=== PATIENT | female | born 1935 | race Caucasian/White ===

== ENCOUNTER 2019-05-02 18:32 | Outpatient (CLI) | payer MEDICARE | END 2019-05-02 18:33 | disposition EMS.NT | LOC: EMS 18:32 | PROVIDERS: ATTEND Surgery | DX: R10.9 Unspecified abdominal pain (principal) ==

== ENCOUNTER 2019-05-02 19:55 | Emergency (ER) | payer MEDICARE, OTHER ==
--- NOTE | 2019-05-02 20:33 | ED Physician Documentation ---
History of Present Illness - Stated complaint Stated Complaint: LOWER ABD PAIN - Chief complaint Chief Complaint: Abd Pain - History obtained from History obtained from: Patient - Additonal information Additional information: Patient comes emergency department with her for chief complaint of abdominal pain that started today. states that the patient's pain started in the epigastric area but has moved to her lower abdomen over the course of the day. Patient states the pain is across her low abdomen now. She denies any fevers or chills. No nausea or vomiting. No dysuria. No diarrhea. Patient's states that she had a couple of hard nuggets of stool that came out earlier.No other complaints at this time. No chest discomfort, cough, or shortness of breath. Patient states that she has never had surgery on her abdomen and has all of her abdominal organs. Review of Systems Ten Systems: 10 systems reviewed and negative Constitutional: reports: Reviewed and negative Eyes: reports: Reviewed and negative Ears: reports: Reviewed and negative Nose: reports: Reviewed and negative Throat: reports: Reviewed and negative Cardiac: reports: Reviewed and negative Respiratory: reports: Reviewed and negative GI: reports: Abdominal Pain : reports: Reviewed and negative Skin: reports: Reviewed and negative Musculoskeletal: reports: Reviewed and negative Neurologic: reports: Reviewed and negative Psychiatric: reports: Reviewed and negative Endocrine: reports: Reviewed and negative Immunocompromised: reports: Reviewed and negative PD PAST MEDICAL HISTORY - Allergies Allergies/Adverse Reactions: Allergies Allergy/AdvReac Type Severity Reaction Status Date / Time No Known Drug Allergies Allergy Verified 05/02/19 20:01 PD ED PE NORMAL - Vitals Vital signs reviewed: Yes - General General: Alert and oriented X 3, No acute distress - HEENT HEENT: PERRL - Neck Neck: Supple, no meningeal sign - Cardiac Cardiac: RRR, No murmur - Respiratory Respiratory: Clear bilaterally - Abdomen Abdomen: Soft, Non distended, Other (Patient has tenderness over her lower abdomen diffusely without rebound or guarding. Tenderness is not worse on one side than the other.) - Derm Derm: Warm and dry - Extremities Extremities: No deformity - Neuro Neuro: Alert and oriented X 3 - Psych Psych: Normal mood, Normal affect Results - Vitals Vitals: Vital Signs - 24 hr 05/02/19 05/02/19 20:02 22:19 Temperature 36.8 C 36.1 C L Heart Rate 63 62 Respiratory 16 16 Rate Blood Pressure 162/108 H 205/95 H O2 Saturation 100 100 Oxygen O2 Source Room air - Labs Labs: Laboratory Tests 05/02/19 05/02/19 05/02/19 20:30 20:30 21:45 WBC 9.2 RBC 3.84 L Hgb 12.8 Hct 37.9 MCV 98.7 MCH 33.3 H MCHC 33.8 RDW 13.6 Plt Count 365 MPV 9.6 Neut # (Auto) 6.5 Lymph # (Auto) 1.4 L [place] # (Auto) 1.0 Eos # (Auto) 0.2 Baso # (Auto) 0.1 Absolute Nucleated RBC 0.00 Nucleated RBC % 0.0 Sodium 145 Potassium 4.0 Chloride 105 Carbon Dioxide 29 Anion Gap 11.0 BUN 29 H Creatinine 1.0 Estimated GFR (MDRD) 53 L Glucose 105 H Calcium 9.6 Total Bilirubin 0.6 AST 35 ALT 29 Alkaline Phosphatase 41 L Total Protein 7.0 Albumin 4.1 Globulin 2.9 Albumin/Globulin Ratio 1.4 Lipase 49 Urine Color Cancelled Urine Clarity Cancelled Urine pH Cancelled Ur Specific [place] Cancelled Urine Protein Cancelled Urine Glucose (UA) Cancelled Urine Ketones Cancelled Urine Occult Blood Cancelled Urine Nitrite Cancelled Urine Bilirubin Cancelled Urine Urobilinogen Cancelled Ur Leukocyte Esterase Cancelled Ur Microscopic Review Cancelled Urine Culture Comments Cancelled PD MEDICAL DECISION MAKING - ED course Complexity details: reviewed old records, reviewed results, re-evaluated patient, considered differential, d/w patient, d/w family ED course: Patient was worked up with labs. Patient appeared fairly comfortable in the emergency department and so initially, was not given any symptomatic treatment.Labs were unremarkable. I had plan to get a urinalysis and a CT scan of the abdomen and pelvis on the patient; however, when patient was sent in to do her urine Sample, she had a large bowel movement. She did not give a urine sample, but reported feeling much, much better after defecating. Patient stated her discomfort was completely gone. The then did admit that he had given her a large amount of Mylanta earlier in the day to try to get her to pass stool, as he thought that she most likely had constipation. At this point, given the patient's symptoms had completely passed and she was well-appearing with labs that were not concerning, I feel she was stable for discharge home with no further work-up. We have discussed home management of the symptoms, as well as the usual indications for return. Departure - Departure Disposition: 01 Home, Self Care Clinical Impression: Constipation, Abdominal pain Condition: Good Instructions: ED Constipation Comments: Your labs all look good. It seems that your symptoms have improved after your bowel movement. If things get worse again then please return to the emergency department if you are concerned. Otherwise, you may follow-up with your primary care physician for any further concerns. Discharge Date/Time: 05/02/19 22:21
[2019-05-02 20:37] LABS: BASOPHILS # (AUTO) 0.1 10^3/uL (0.0-0.1); EOSINOPHILS # (AUTO) 0.2 10^3/uL (0.0-0.7); EOSINOPHILS % (AUTO) 2.5 %; HGB - HEMOGLOBIN 12.8 g/dL (12.0-16.0); LYMPHOCYTES # (AUTO) 1.4 10^3/uL (1.5-3.5); MEAN CORPUSCULAR HEMOGLOBIN 33.3 pg (27.0-31.0); MEAN CORPUSCULAR HGB CONC 33.8 g/dL (32.0-36.0); MEAN CORPUSCULAR VOLUME 98.7 fL (81.0-99.0); MEAN PLATELET VOLUME 9.6 fL (7.9-10.8); MONOCYTES % (AUTO) 11.2 %; NEUTROPHILS # (AUTO) 6.5 10^3/uL (1.5-6.6); PLT - PLATELET COUNT 365 10^3/uL (130-450); RED BLOOD COUNT 3.84 10^6/uL (4.20-5.40); RED CELL DISTRIBUTION WIDTH 13.6 % (12.0-15.0); WHITE BLOOD COUNT 9.2 x10^3/uL (4.8-10.8)
[2019-05-02 20:50] LABS: ALBUMIN 4.1 g/dL (3.2-5.5); ALBUMIN/GLOBULIN RATIO 1.4 (1.0-2.2); BILIRUBIN,TOTAL 0.6 mg/dL (0.2-1.0); CALCIUM 9.6 mg/dL (8.5-10.3)
[2019-05-02] MEDS ORDERED: IOVERSOL 320 100 ML VIAL IVP ONE (21:47)
[2019-05-02 22:20] VITALS: BP 205/95
== END 2019-05-02 22:21 | disposition home or self-care (01) ==
LOC: ED 19:55
DX: K59.00 Constipation, unspecified (principal)
CPT/HCPCS: 36415; 80053; 81001; 81003; 83690; 85025; 87086; 99284

== ENCOUNTER 2020-01-16 16:35 | Outpatient (CLI) | payer MEDICARE | END 2020-01-16 16:36 | disposition EMS.NT | LOC: EMS 16:35 | PROVIDERS: ATTEND Surgery | DX: R10.9 Unspecified abdominal pain (principal) ==

== ENCOUNTER 2020-08-06 09:21 | Emergency (ER) | payer MEDICARE ==
--- NOTE | 2020-08-06 09:34 | ED Physician Documentation ---
PD HPI SKIN - Stated complaint Stated Complaint: LIP PX - Chief complaint Chief Complaint: Wound - History obtained from History obtained from: Patient, Family () - History of Present Illness Timing - onset: How many days ago (2) Timing - duration: Days (2) Timing - details: Abrupt onset (onset blister rash lower lip 2 days ago that has spread along lip margin. Painful.), Still present Location: Face (just lower lip margin) Quality / character: Painful, Vesicular Improved by: Other ( had acyclovir at home and started it yesterday. Has 5 day supply, from prior outbreak.) Associated symptoms: No: Fever, Myalgias Similar symptoms before: Diagnosis (prior episode of single blister Rx with acyclovir. This is spreading more than prior. Prior episodes twice after sun exposure. was not out in sun this time. No other new meds. Had COVID vaccine few months ago.) Recently seen: Not recently seen Review of Systems Constitutional: denies: Fever, Chills Nose: denies: Rhinorrhea / runny nose, Congestion Throat: denies: Sore throat Cardiac: denies: Chest pain / pressure Respiratory: denies: Dyspnea, Cough GI: denies: Nausea, Vomiting, Diarrhea PD PAST MEDICAL HISTORY - Past Medical History Cardiovascular: Hypertension Neuro: Dementia - Present Medications Home Medications: Ambulatory Orders Medication Instructions Recorded Confirmed Acyclovir 400 mg PO TID 5 Days #15 tablet 08/06/20 Alendronate [Fosamax] 70 mg PO PRN PRN 08/06/20 08/06/20 Atorvastatin [Lipitor] 40 mg PO DAILY 08/06/20 08/06/20 Lidocaine Viscous 2% [Xylocaine 1 ml TOP Q4H PRN #30 ml 08/06/20 Viscous 2%] QUEtiapine [SEROquel] 25 mg PO DAILY 08/06/20 08/06/20 - Allergies Allergies/Adverse Reactions: Allergies Allergy/AdvReac Type Severity Reaction Status Date / Time No Known Drug Allergies Allergy Verified 08/06/20 09:30 PD ED PE NORMAL - Vitals Vital signs reviewed: Yes - General General: Alert and oriented X 3, No acute distress, Well developed/nourished - HEENT HEENT: Moist mucous membranes, Pharynx benign, Other (throat, tongue and gums normal. Lower lip with blistering rash along margin. No purulence. ) - Neck Neck: Supple, no meningeal sign, No adenopathy - Cardiac Cardiac: RRR, No murmur - Respiratory Respiratory: Clear bilaterally - Derm Derm: Normal color, Warm and dry, No rash (other than lower lip.) Results - Vitals Vitals: Vital Signs - 24 hr 08/06/20 08/06/20 09:26 10:23 Temperature 35.9 C L 36.7 C Heart Rate 56 L 61 Respiratory 16 18 Rate Blood Pressure 151/85 H 159/83 H O2 Saturation 98 98 Oxygen O2 Source Room air PD MEDICAL DECISION MAKING - ED course Complexity details: considered differential (looks like oral herpetic), d/w patient Departure - Departure Disposition: 01 Home, Self Care 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 You can add lidocaine gel topically as needed for discomfort. You can use it fairly regularly actually. Also keep the area moisturized with just plain Vaseline lip ointment. Avoid Chapstick and other medicated type lip balm's as they may just staying. (No harm done but just staying). Add Tylenol or Aleve if needed for pain. If this has not resolved well over the next several days, you can continue the acyclovir out beyond 5 days. Discharge Date/Time: 08/06/20 10:30
[2020-08-06] MEDS ORDERED: LIDOCAINE VISCOUS 2% 15 ML UDC MM STA (10:04)
[2020-08-06] MEDS ORDERED: ACETAMINOPHEN 325 MG TABLET PO STA (10:04)
[2020-08-06 10:24] VITALS: BP 159/83
== END 2020-08-06 10:30 | disposition home or self-care (01) ==
LOC: ED 09:21
DX: B00.1 Herpesviral vesicular dermatitis (principal)
CPT/HCPCS: 99282; 99284; A9270

== ENCOUNTER 2020-11-09 07:43 | Outpatient (CLI) | payer MEDICARE ==
[2020-11-09 15:07] LABS: BASOPHILS # (AUTO) 0.1 10^3/uL (0.0-0.1); BASOPHILS % (AUTO) 1.7 %; EOSINOPHILS # (AUTO) 0.2 10^3/uL (0.0-0.7); EOSINOPHILS % (AUTO) 3.9 %; HGB - HEMOGLOBIN 13.3 g/dL (12.0-16.0); LYMPHOCYTES % (AUTO) 18.4 %; MEAN CORPUSCULAR HEMOGLOBIN 31.6 pg (27.0-31.0); MEAN CORPUSCULAR HGB CONC 30.9 g/dL (32.0-36.0); MEAN CORPUSCULAR VOLUME 102.1 fL (81.0-99.0); MEAN PLATELET VOLUME 10.7 fL (7.9-10.8); MONOCYTES # (AUTO) 0.7 10^3/uL (0.0-1.0); MONOCYTES % (AUTO) 12.4 %; NEUTROPHILS # (AUTO) 3.4 10^3/uL (1.5-6.6); NEUTROPHILS % (AUTO) 63.2 %; PLT - PLATELET COUNT 327 10^3/uL (130-450); RED BLOOD COUNT 4.21 10^6/uL (4.20-5.40); RED CELL DISTRIBUTION WIDTH 13.4 % (12.0-15.0); WHITE BLOOD COUNT 5.3 x10^3/uL (4.8-10.8)
[2020-11-09 15:29] LABS: ALBUMIN 3.8 g/dL (3.2-5.5); ALBUMIN/GLOBULIN RATIO 1.3 (1.0-2.2); ALKALINE PHOSPHATASE 52 IU/L (42-121); ALT ALANINE AMINOTRANSFERASE 33 IU/L (10-60); AST ASPARTATE AMINOTRANSFERASE 33 IU/L (10-42); BILIRUBIN,TOTAL 0.9 mg/dL (0.2-1.0); BUN - BLOOD UREA NITROGEN 17 mg/dL (6-20); CALCIUM 9.2 mg/dL (8.5-10.3); CARBON DIOXIDE - CO2 28 mmol/L (21-32); CHLORIDE 105 mmol/L (101-111); CHOL/HDL RATIO 2.8 (<4.4); CHOLESTEROL 209 mg/dL; CREATININE 0.9 mg/dL (0.4-1.0); GFR - MDRD 60 (>89); GLUCOSE 88 mg/dL (70-100); HDL CHOLESTEROL 76 mg/dL; LDL CHOLESTEROL,CALCULATED 121 mg/dL; LDL/HDL RATIO 1.6 (<4.4); SODIUM 141 mmol/L (135-145); TOTAL PROTEIN 6.8 g/dL (6.7-8.2); TRIGLYCERIDES 59 mg/dL; VLDL CHOLESTEROL 12 mg/dL
== END 2020-11-09 07:44 | disposition home or self-care (01) ==
LOC: LAB.S 07:43
PROVIDERS: ATTEND Internal Medicine
DX: Z79.899 Other long term (current) drug therapy (principal); E78.5 Hyperlipidemia, unspecified
CPT/HCPCS: 36415; 80053; 80061; 83721; 85025

== ENCOUNTER 2021-01-10 10:21 | Outpatient (CLI) | payer MEDICARE ==
[2021-01-10 15:27] LABS: THYROID STIMULATING HORMONE 1.85 uIU/mL (0.34-5.60)
== END 2021-01-10 10:22 | disposition home or self-care (01) ==
LOC: LAB.S 10:21
PROVIDERS: ATTEND Internal Medicine
DX: F03.90 Unspecified dementia, unspecified severity, without behavioral disturbance, psychotic disturbance, mood disturbance, and anxiety (principal)
CPT/HCPCS: 36415; 82607; 82746; 84443

== ENCOUNTER 2021-10-30 12:01 | Emergency (ER) | payer MEDICARE ==
--- NOTE | 2021-10-30 12:44 | ED Physician Documentation ---
PD HPI LOWER EXT INJURY - Stated complaint Stated Complaint: RT HIP PX - Chief complaint Chief Complaint: Ext Problem - History obtained from History obtained from: Patient, Family - History of Present Illness PD HPI LOW EXT INJURY LOCATION: Right, Hip, Buttock Type of injury: No: Fall, Twist Where injury occurred: Home Timing - onset: Last night Timing - details: Abrupt onset, Still present Worsened by: Other (weight bearing). No: Palpating Associated symptoms: No: Weakness, Numbness Contributing factors: Prior ortho surgery Similar symptoms before: Has not had sx before Recently seen: Clinic (seen by PMD for hip pain and referred to PT. Has PT yesterday and hip hurting more after. Worse with walking.) Review of Systems Constitutional: denies: Fever, Chills, Myalgias Throat: denies: Sore throat Respiratory: denies: Cough Musculoskeletal: denies: Extremity swelling Neurologic: reports: Generalized weakness. denies: Focal weakness, Numbness, Near syncope, Altered mental status, Headache, Head injury PD PAST MEDICAL HISTORY - Past Medical History Past Medical History: Yes Cardiovascular: Hypertension Neuro: Dementia - Past Surgical History Past Surgical History: No Ortho: Hip replacement, Knee replacement - Present Medications Home Medications: Ambulatory Orders Medication Instructions Recorded Confirmed Acyclovir 400 mg PO TID 5 Days #15 tablet 08/06/20 Alendronate [Fosamax] 70 mg PO PRN PRN 08/06/20 08/06/20 Atorvastatin [Lipitor] 40 mg PO DAILY 08/06/20 08/06/20 Lidocaine Viscous 2% [Xylocaine 1 ml TOP Q4H PRN #30 ml 08/06/20 Viscous 2%] QUEtiapine [SEROquel] 25 mg PO DAILY 08/06/20 08/06/20 HYDROcod/ACETAM 5/325 [[place] 5/325] 1 ea PO Q6H PRN #20 tablet 10/30/21 Meloxicam [Mobic] 7.5 mg PO BID 10 Days #20 tablet 10/30/21 QUEtiapine [SEROquel] 25 mg PO QPM #30 tablet 10/30/21 - Allergies Allergies/Adverse Reactions: Allergies Allergy/AdvReac Type Severity Reaction Status Date / Time No Known Drug Allergies Allergy Verified 10/30/21 12:29 - Social History Does the pt smoke?: No Smoking Status: Never smoker Does the pt drink ETOH?: No Does the pt have substance abuse?: No - Immunizations Immunizations are current?: Yes - POLST Patient has POLST: No PD ED PE NORMAL - Vitals Vital signs reviewed: Yes - General General: Alert and oriented X 3, Well developed/nourished Results - Vitals Vitals: Oxygen O2 Source Room air - Rads (name of study) lumbar CT Radiology: Prelim report reviewed (no acute fractures. Age related arthritis.), See rad report pelvic CT Radiology: Prelim report reviewed (no fractures noted. ), See rad report PD MEDICAL DECISION MAKING - ED course Complexity details: reviewed results, considered differential, d/w patient Departure - Departure Disposition: 01 Home, Self Care Clinical Impression: Pain in joint involving right pelvic region and thigh Condition: Stable Record reviewed to determine appropriate education?: Yes Prescriptions: Meloxicam [Mobic] 7.5 mg PO BID 10 Days #20 tablet HYDROcod/ACETAM 5/325 [[place] 5/325] 1 ea PO Q6H PRN #20 tablet PRN Reason: Pain QUEtiapine [SEROquel] 25 mg PO QPM #30 tablet Comments: No signs of fractures nor disruption of the prior hip replacement. Presume some arthritis through the low back and pelvis with some sciatic type radiation down the leg. Activity as tolerated. I would suggest trying an anti-inflammatory. We can try a long-acting 1 called meloxicam twice daily for the next 7 to 10 days. Be sure to take it with some food. On to that add Tylenol 500 mg 4 times daily regularly for the next 7 to 10 days. To that you could add or alternatively use hydrocodone/acetaminophen every 8 hours if needed, particularly at night to help with sleep. I was not able to write a prescription to [facility] so I did refill your quet iapine 25 mg at night for #30. You will need to get further prescription refills through your primary care. I sent the prescriptions to [facility] in [place]. I am prescribing a short course of narcotic pain medication for you. These are potentially dangerous and addictive medications that should be used carefully. These medications may constipate you. Take an [id number] stool softener such as docusate twice daily with plenty of water while taking these medications. If you go 24 hours without a bowel movement, take [id number] MiraLAX, per package instructions. Do not drink or drive while taking these medications. If you received narcotic or sedating medications while in the emergency department do not drive for 24 hours. Store this medication in a safe, secure place and out of reach of children. It is a violation of federal law to give or sell this medication to another person or to use in a manner other than prescribed. The ED will not refill narcotic prescriptions, including prescriptions lost or stolen. You can dispose of unwanted medications at the [facility]'s office or at several pharmacies such as [facility] Discharge Date/Time: 10/30/21 15:24
[2021-10-30] MEDS ORDERED: NAPROXEN 250 MG TABLET PO STA (13:00)
--- NOTE | 2021-10-30 13:57 | CT Report ---
PROCEDURE: PELVIS WO INDICATIONS: low back/pelvic/hip pain with walking TECHNIQUE: Noncontrast 3 mm axial sections acquired through the bony pelvis, with coronal and sagittal reformatt ing. For radiation dose reduction, the following was used: automated exposure control, adjustment of mA and/or kV according to patient size. COMPARISON: None. FINDINGS: Image quality: Excellent. Bones: No displaced fracture is identified. There are degenerative changes of the sacroiliac joints, pubic symphysis, and left hip. Small sclerotic lesions are probably bone islands. Lumbar spine findi ngs are separately dictated. There is a right hip arthroplasty that appears to be appropriate positio n, with small amounts of adjacent heterotopic ossification. Soft tissues: There are atherosclerotic calcifications. No bowel obstruction. Metallic artifact obsc ures portions of the pelvis. IMPRESSION: No acute fracture or dislocation. Degenerative changes of the left hip, pubic symphysis, and sacroili ac joints. Lumbar spine findings are separately dictated. No significant hematoma or other large area of soft tissue injury. Right hip arthroplasty appears to be in appropriate position. If there is further concern for internal derangement, consider MRI. Small sclerotic bone lesions might represent bone islands. Reviewed by: Temo Colón MD on 10/30/2021 1:56 PM PDT Approved by: Temo Colón MD on 10/30/2021 1:56 PM PDT Station ID: [id number]
--- NOTE | 2021-10-30 14:07 | CT Report ---
PROCEDURE: LUMBAR SPINE WO INDICATIONS: low back/pelvic pain with weight bearing TECHNIQUE: Noncontrast 3 mm thick sections acquired from the T12 level to the sacrum. Sagittal and coronal refo rmats were constructed. For radiation dose reduction, the following was used: automated exposure co ntrol, adjustment of mA and/or kV according to patient size. COMPARISON: None. FINDINGS: Lumbar vertebral body heights maintained. There is no fracture in the lumbar spine identified. Degene rative anterolisthesis of L5 on S1 measuring 6 mm. Degenerative anterolisthesis of L4 and L5 measurin g 5 mm. Moderate levoscoliosis with apex at L1-L2. Degenerative changes of the opposing endplates at L1-L2, worse on the right at the apex of the scoliosis. No suspicious lytic or blastic osseous lesion . Moderate facet osteoarthropathy and degenerative spondylitic changes throughout the lumbar spine. R egional soft tissues demonstrate no acute finding. IMPRESSION: No acute finding. Moderate to severe degenerative changes. Reviewed by: Primitivo Sheikh MD on 10/30/2021 2:06 PM PDT Approved by: Primitivo Sheikh MD on 10/30/2021 2:06 PM PDT Station ID: [id number]
[2021-10-30] MEDS ORDERED: HYDROcod/ACETAM 5/325 MG TABLET PO STA (14:43)
[2021-10-30 15:24] VITALS: BP 169/85
== END 2021-10-30 15:24 | disposition home or self-care (01) ==
LOC: ED 12:01
DX: R10.2 Pelvic and perineal pain (principal); M79.651 Pain in right thigh
CPT/HCPCS: 72131; 72192; 99282; 99284; A9270

== ENCOUNTER 2022-05-13 11:15 | Outpatient (CLI) | payer MEDICARE ==
[2022-05-13 14:49] LABS: CALCIUM 9.4 mg/dL (8.5-10.3); CREATININE 1.1 mg/dL (0.4-1.0); POTASSIUM 4.2 mmol/L (3.5-5.0)
== END 2022-05-13 11:16 | disposition home or self-care (01) ==
LOC: LAB.S 11:15
PROVIDERS: ATTEND Hospitalist
DX: N18.31 Chronic kidney disease, stage 3a (principal)
CPT/HCPCS: 36415; 80048

== ENCOUNTER 2022-12-19 11:08 | Outpatient (CLI) | payer MEDICARE ==
[2022-12-19 14:43] LABS: BASOPHILS # (AUTO) 0.1 10^3/uL (0.0-0.1); BASOPHILS % (AUTO) 1.2 %; EOSINOPHILS # (AUTO) 0.1 10^3/uL (0.0-0.7); EOSINOPHILS % (AUTO) 0.9 %; HCT - HEMATOCRIT 41.8 % (37.0-47.0); LYMPHOCYTES % (AUTO) 13.3 %; MEAN CORPUSCULAR HEMOGLOBIN 30.4 pg (27.0-31.0); MEAN CORPUSCULAR HGB CONC 31.1 g/dL (32.0-36.0); MEAN CORPUSCULAR VOLUME 97.9 fL (81.0-99.0); MEAN PLATELET VOLUME 10.4 fL (7.9-10.8); MONOCYTES # (AUTO) 0.7 10^3/uL (0.0-1.0); MONOCYTES % (AUTO) 8.8 %; NEUTROPHILS # (AUTO) 5.7 10^3/uL (1.5-6.6); NEUTROPHILS % (AUTO) 75.5 %; PLT - PLATELET COUNT 375 10^3/uL (130-450); RED BLOOD COUNT 4.27 10^6/uL (4.20-5.40); RED CELL DISTRIBUTION WIDTH 13.9 % (12.0-15.0); WHITE BLOOD COUNT 7.6 x10^3/uL (4.8-10.8)
[2022-12-19 15:30] LABS: CHOLESTEROL 201 mg/dL; HDL CHOLESTEROL 62 mg/dL; LDL CHOLESTEROL,DIRECT 112 mg/dL (75-193)
[2022-12-19 15:31] LABS: ALBUMIN 4.2 g/dL (3.2-5.5); ALBUMIN/GLOBULIN RATIO 1.7 (1.0-2.2); BILIRUBIN,TOTAL 0.6 mg/dL (0.2-1.0); CALCIUM 9.8 mg/dL (8.5-10.3); CREATININE 1.1 mg/dL (0.6-1.3); POTASSIUM 3.8 mmol/L (3.5-4.5); TOTAL PROTEIN 6.7 g/dL (6.4-8.9)
== END 2022-12-19 11:09 | disposition home or self-care (01) ==
LOC: LAB.S 11:08
PROVIDERS: ATTEND Hospitalist
DX: E78.49 Other hyperlipidemia (principal); Z79.899 Other long term (current) drug therapy
CPT/HCPCS: 36415; 80053; 82465; 83718; 83721; 85025